=== PATIENT | female | born 1970 | race Caucasian/White ===

== ENCOUNTER 2017-03-12 08:32 | Day surgery (SDC) | payer OTHER ==
[~2017-03-12] VITALS: Ht 167.6 cm; Wt 65.8 kg
[2017-03-12] MEDS ORDERED: LIDOCAINE 2% 100 MG/5 ML UJET TP ONE (10:29)
[2017-03-12] MEDS ORDERED: fentaNYL 0.05 MG/ML VIAL ONE (10:46)
[2017-03-12] MEDS ORDERED: MIDAZOLAM 2 MG/2 ML VIAL ONE (10:46)
[2017-03-12] MEDS ORDERED: LIDOCAINE 2% 100 MG/5 ML SYR IVP ONE (11:28)
[2017-03-12] MEDS ORDERED: MIDAZOLAM 2 MG/2 ML VIAL IVP ONE (12:50)
[2017-03-12] MEDS ORDERED: fentaNYL 0.05 MG/ML VIAL IVP ONE (12:50)
[2017-03-12] MEDS ORDERED: fentaNYL 0.05 MG/ML VIAL IVP SCH (12:58)
[2017-03-12] MEDS ORDERED: MIDAZOLAM 2 MG/2 ML VIAL IVP SCH (13:02)
== END 2017-03-12 13:05 | disposition home or self-care (01) ==
LOC: MDS 08:32 → MMU 08:33 → MDS 13:05
PROVIDERS: ATTEND Internal Medicine Gastroenterology
DX: K52.9 Noninfective gastroenteritis and colitis, unspecified (principal); E66.3 Overweight; D69.6 Thrombocytopenia, unspecified; I63.9 Cerebral infarction, unspecified; Z79.899 Other long term (current) drug therapy; Z98.890 Other specified postprocedural states; Z98.51 Tubal ligation status
CPT/HCPCS: 45380; J2001; J2250; J3010; J7030